=== PATIENT | female | born 1990 | race Caucasian/White ===

== ENCOUNTER 2017-04-27 01:27 | Emergency (ER) | payer OTHER ==
[~2017-04-27] VITALS: Ht 162.6 cm; Wt 53.5 kg
[2017-04-27] MEDS ORDERED: LEVOTHYROXINE50 MCG PO (01:46)
[2017-04-27] MEDS ORDERED: SUBOXONE 8 MG-1 EACH SL (01:47)
[2017-04-27] MEDS ORDERED: BRINTELLIX10 M1 PO (01:47)
[2017-04-27] MEDS ORDERED: HYDROXYZINE HCL25 M3 PO (01:47)
--- NOTE | 2017-04-27 01:54 | ED GI/GU/ABDOMINAL COMPLAINT ---
History of Present Illness General Chief Complaint: Female Urogenital Problems Stated Complaint: PT C/O " VERY HEAVY MENSES NOT NORMAL" Source: patient Exam Limitations: no limitations Vital Signs & Intake/Output Vital Signs & Intake/Output Vital Signs Date Time Temp Pulse Resp B/P B/P Pulse O2 O2 Flow FiO2 Mean Ox Delivery Rate 04/27 0212 80 20 111/66 97 Room Air 04/27 0208 Room Air 04/27 0143 100 18 145/76 96 Room Air Allergies Coded Allergies: nickel (Intermediate, ITCHY RASH 04/27/17) Reconcile Medications Buprenorphine HCl/Naloxone HCl (Suboxone 8 MG-2 MG Sl Film) 8 MG-2 MG FILM 1 STR SL DAILY (Reported) Hydroxyzine HCl (hydrOXYzine HCl) 25 MG TABLET 1 TAB PO PRN PRN ANXIETY ( Reported) Ibuprofen 800 MG TABLET 1 TAB PO TID PRN PAIN Levothyroxine Sodium 50 MCG TABLET 1 TAB PO DAILY HYPOTHYROID (Reported) Methylergonovine Maleate (Methergine) 0.2 MG TABLET 1 TAB PO TID BLEEDING Oxycodone HCl/Acetaminophen (Percocet 5-325 MG Tablet) 5 MG-325 MG TABLET 1 TAB PO BID BREAKTHROUGH PAIN Vortioxetine Hydrobromide (Brintellix) 10 MG TABLET 1 TAB PO DAILY ( Reported) Triage Note: TRIAGE: PATIENT TO ER FROM HOME REPORTING HEAVY MENSES X 1 WEEK, "SINCE MONDAY IT LOOKED LIKE YOU WERE POURING JUICE INTO A CUP. TONIGHT HAD HUGE BLOOD CLOT AND MUCOUSEY WHITE DISCHARGE TOO." PATIENT REPORTING 09/03 "EXCRUCIATING" ABD PAIN TO LOWER MID ABD. Triage Nurses Notes Reviewed? yes ? n Is pt currently ? No Onset: Gradual Duration: week(s): (1) Location: vaginal No Modifying Factors: none HPI: 27 year old female presents to the ER for chief complaint of hevy vaginal bleeding since Monday but started bleeding over one week ago. Patient reports that her menstruation has been irregular and she is on the IUD implant. She is due to have the next one on implant removed by her SPORTS COORDINATOR in. LMP was approximately 3 and half weeks ago. She states usually last 4-5 days and is never this heavy in this long. Tonight as she was removing a tampon there is a large clot that was formed. No history of ovarian cysts or endometriosis. Past History Travel History Traveled to [place] past 21 day No Medical History Any Pertinent Medical History? see below for history Neurological: NONE EENT: NONE Cardiovascular: NONE Respiratory: NONE Gastrointestinal: NONE Hepatic: NONE Renal: NONE Musculoskeletal: NONE Psychiatric: NONE Endocrine: HYPOTHYROID Blood Disorders: NONE Cancer(s): NONE BRANCH LENDING OFFICER/Reproductive: Surgical History Surgical History: non-contributory Psychosocial History What is your primary language Kuwaiti Tobacco Use: Refused to answer Family History Hx Contributory? No Review of Systems Review of Systems Constitutional: Reports: weakness. Denies: chills, malaise. EENTM: Reports: no symptoms. Respiratory: Denies: cough, short of breath. Cardiovascular: Denies: chest pain, palpitations. GI: Reports: see HPI (CRAMPING). Genitourinary: Reports: no symptoms. Musculoskeletal: Reports: no symptoms. Skin: Reports: no symptoms. Neurological/Psychological: Reports: no symptoms. Hematologic/Endocrine: Reports: bleeding. Immunologic/Allergic: Denies: splenectomy. All Other Systems: Reviewed and Negative Physical Exam Physical Exam General Appearance: well developed/nourished, alert, awake, mild distress Head: atraumatic, normal appearance Eyes: Bilateral: normal appearance, PERRL, EOMI. Ears, Nose, Throat, Mouth: hearing grossly normal, moist mucous membrane Neck: normal inspection, supple, full range of motion Respiratory: normal breath sounds, chest non-tender, no respiratory distress Cardiovascular: regular rate/rhythm, normal peripheral pulses Gastrointestinal: normal bowel sounds, soft, non-tender Neurologic/Psych: no motor/sensory deficits, awake, alert, oriented x 3, normal gait Skin: intact, normal color, warm/dry Core Measures ACS in differential dx? No Sepsis Present: No Sepsis Focused Exam Completed? No Progress Differential Diagnosis: DUB, ANEMIA, Plan of Care: Orders Procedure Date/time Status MISTAKE 04/27 020 Active HUMAN BETA HCG SCREEN 04/27 020 Complete COMPREHENSIVE METABOLIC PANEL 04/27 020 Complete CBC WITHOUT DIFFERENTIAL 04/27 199 Complete URINALYSIS 04/27 0156 Complete Current Medications Sig/Kevin Start time Last Medication Dose Stop Time Status Admin Hydrocodone Bitart/ 1 TAB ONCE ONE 04/27 0315 UNVr 04/27 Acetaminophen 04/27 0316 0307 (Vicodin) Laboratory Tests 04/27/17 0300: Urine Color YEL, Urine Clarity CLEAR, Urine pH 6.0, Ur Specific [place] 1.025, Urine Protein NEG, Urine Ketones NEG, Urine Nitrite NEG, Urine Bilirubin NEG, Urine Urobilinogen 0.2, Ur Leukocyte Esterase NEG, Ur Microscopic SEDIMENT EXAMINED, Urine RBC 1-3, Urine WBC 1-3 H, Ur Epithelial Cells FEW, Urine Bacteria RARE H, Urine Mucus MOD H, Urine Hemoglobin MOD H, Urine Glucose NEG 04/27/17 0208: Anion Gap 12, Estimated GFR > 60, BUN/Creatinine Ratio 17.1, Glucose 91, Calcium 9.3, Total Bilirubin 0.4, AST 21, ALT 33, Alkaline Phosphatase 50, Total Protein 7.1, Albumin 4.5, Globulin 2.6, Albumin/Globulin Ratio 1.7, Total Beta HCG NEGATIVE, CBC w Diff NO MAN DIFF REQ, RBC 4.11 L, MCV 89.5, MCH 30.4, MCHC 34.0 , RDW 12.6, MPV 7.6, Gran % 46.5, Lymphocytes % 43.0, Monocytes % 8.9, Eosinophils % 1.2, Basophils % 0.4, Absolute Granulocytes 2.9, Absolute Lymphocytes 2.7, Absolute Monocytes 0.6, Absolute Eosinophils 0.1, Absolute Basophils 0 MILD ANEMIA, PAIN CONTROLLED WITH TORADOL. WILL FOLLOW UP WITH HER OBGYN DOCTOR. Initial ED EKG: none Departure Departure Time of Disposition: 336 Disposition: HOME OR SELF CARE Condition: Stable Clinical Impression Primary Impression: Menorrhagia Secondary Impressions: Dysmenorrhea Referrals: Patient Has No Primary Care Dr Additional Instructions: TAKE THE IBUPROFEN, METHERGEN DIRECTED CALL YOUR BRANCH LENDING OFFICER DOCTOR TOMORROW FOR AN APPOINTMENT RETURN TO THE ER FOR ANY CHANGING OR WORSENING SYMPTOMS Departure Forms: Customer Survey General Discharge Information Prescriptions: Current Visit Scripts Ibuprofen 1 TAB PO TID PRN PAIN #30 TAB Methylergonovine Maleate (Methergine) 1 TAB PO TID #15 TAB Oxycodone HCl/Acetaminophen (Percocet 5-325 MG Tablet) 1 TAB PO BID #6 TAB
[2017-04-27 02:14] LABS: ABSOLUTE BASOPHIL COUNT 0 /CUMM (0.0-0.2); ABSOLUTE EOSINOPHIL COUNT 0.1 /CUMM (0.0-0.7); ABSOLUTE GRANULOCYTE CT 2.9 /CUMM (1.4-6.5); ABSOLUTE LYMPH COUNT 2.7 /CUMM (1.2-3.4); ABSOLUTE MONOCYTE COUNT 0.6 /CUMM (0.10-0.60); BASOPHIL % 0.4 % (0.0-2.0); EOSINOPHIL % 1.2 % (0-5); GRANULOCYTE % 46.5 % (42.2-75.2); HEMATOCRIT 36.8 % (37-47); MEAN CORPUSCULAR HGB 30.4 PG (27.0-31.0); MEAN CORPUSCULAR VOLUME 89.5 FL (81.0-99.0); MEAN PLATELET VOLUME 7.6 FL (7.4-10.4); PLATELET COUNT 234 /CUMM (130-400); RBC DISTRIBUTION WIDTH 12.6 % (11.5-14.5); RED BLOOD CELL CT 4.11 /CUMM (4.20-5.40); WHITE BLOOD CELL COUNT 6.3 /CUMM (4.8-10.8)
[2017-04-27] MEDS ORDERED: METHERGINE0.2 M1 PO (03:37)
[2017-04-27] MEDS ORDERED: IBUPROFEN800 M1 PO (03:37)
[2017-04-27] MEDS ORDERED: PERCOCET 5-3251 EACH PO (03:45)
[2017-04-27 03:46] VITALS: BP 114/72
== END 2017-04-27 03:56 ==
LOC: ERH 01:27
PROVIDERS: Emergency Medicine
DX: N92.0 Excessive and frequent menstruation with regular cycle (principal); N94.6 Dysmenorrhea, unspecified
CPT/HCPCS: 81001; 81025; 96372; J1885